=== PATIENT | male | born 1985 | race American Indian/Alaskan Native ===

== ENCOUNTER 2017-05-31 22:42 | Emergency (ER) | payer MEDICAID, OTHER ==
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
[~2017-05-31 22:42] MED LIST: Acetaminophen/HYDROcodone 325-10 MG Tab PO ONE; Silver Sulfadiazine 1% Crm 50 GM Tube TOP ONE
[2017-05-31 23:00] VITALS: BP 128/78
== END 2017-05-31 22:57 | disposition home or self-care (01) ==
LOC: DL.ED 22:42
DX: T23.152A Burn of first degree of left palm, initial encounter (principal); T23.151A Burn of first degree of right palm, initial encounter; F17.210 Nicotine dependence, cigarettes, uncomplicated; X12.XXXA Contact with other hot fluids, initial encounter
CPT/HCPCS: 99283; A9270